=== PATIENT | male | born 1995 | race Caucasian/White ===

== ENCOUNTER 2018-04-07 18:18 | Emergency (ER) | payer SELFPAY ==
[~2018-04-07 18:18] MED LIST: ISOVUE-370 76%-LOCM 1 ML ONE
[2018-04-07] MEDS ORDERED: Ondansetron HCl/PF 4 MG/2 ML Vial ONE (18:39)
[2018-04-07 18:44] LABS: #Lymphocytes 0.8 thou/uL (1.20-3.40); #Monocytes 0.5 thou/uL (0.11-0.59); #Neutrophils 8.6 thou/uL (1.40-6.50); %Basophils 0.2 % (0.0-1.0); %Eosinophils 0.5 % (0.0-10.0); %Lymphocytes 8.4 % (28.0-48.0); %Monocytes 5.2 % (0.0-4.0); %Neutrophils 85.8 % (31.0-61.0); Mean Corpuscular HGB CONC 34.3 g/dL (32.0-36.0); Mean Corpuscular Hemoglobin 29.2 pg (25.0-35.0); Mean Platelet Volume 6.9 fL (7.4-10.4); Platelet Count 181 thou/uL (130-400); RBC Distribution Width 11.5 % (11.5-14.5); Red Blood Cell (RBC) Count 5.82 mill/uL (4.00-5.20)
[2018-04-07 19:03] LABS: ALT (SGPT) 80 U/L (8-55); AST (SGOT) 60 U/L (5-34); Albumin 5.1 g/dL (3.5-5.0); Alkaline Phosphatase 73 U/L (Less than 750); Anion Gap 15 mmol/L (10-20); BUN (Urea Nitrogen) 14 mg/dL (8.9-20.6); Bilirubin, Total 1.1 mg/dL (0.2-1.2); Calc. Creatinine Clearance 0 mL/min (70-130); Calcium 10.3 mg/dL (7.8-10.44); Carbon Dioxide 27 mmol/L (22-29); Chloride 101 mmol/L (98-107); Estimated GFR-MDRD Greater than 90; Globulin 3.2 g/dL (2.4-3.5); Glucose 101 mg/dL (70-105); Lipase 12 U/L (8-78); Protein, Total 8.3 g/dL (6.0-8.3); Sodium 139 mmol/L (136-145)
[2018-04-07 19:35] LABS: Bilirubin Negative (Negative); Blood, Urine Negative (Negative); Clarity CLEAR (Clear); Glucose, Urine (Dipstick) Negative (Negative); Leukocyte Negative (Negative); Nitrite Negative (Negative); Protein, Urine (Dipstick) Negative (Neg-Trace); Urobilinogen 0.2 mg/dL (0.2-1.0)
[2018-04-07 19:36] LABS: Specific Gravity, Urine 1.059 (1.002-1.036)
--- NOTE | 2018-04-07 19:37 | CT ---
CT ABDOMEN AND PELVIS WITH IV CONTRAST: HISTORY: Lower abdominal pain and vomiting. FINDINGS: Absence of oral contrast reduces the sensitivity of the exam, particularly for evaluation of bowel. The lung bases are clear. The liver, spleen, pancreas, adrenal glands, and kidneys are normal. No c alcified gallstones are seen. No free air, free fluid, or lymphadenopathy is seen in the abdomen or pelvis. There is no definite visualization of an abnormal appendix. No acute osseous abnormalities are seen. IMPRESSION: No evidence of acute process. POS: [facility]
== END 2018-04-07 20:04 | disposition home or self-care (01) ==
LOC: ERS 18:18
DX: R11.2 Nausea with vomiting, unspecified (principal); R19.7 Diarrhea, unspecified; R10.32 Left lower quadrant pain; R10.31 Right lower quadrant pain
CPT/HCPCS: 74177; 80053; 81003; 83690; 85025; 96361; 96374; J2405